=== PATIENT | male | born 1965 | race Two or more races ===

== ENCOUNTER 2017-01-16 21:54 | Inpatient (IN) | payer SELFPAY ==
[~2017-01-16] VITALS: Ht 167.6 cm; Wt 101.0 kg
[~2017-01-16 21:54] MED LIST: ASPI81TA2 PO; CARV3.122 PO; FURO40TA5 PO; LISI-607 PO; POTA10TA48 PO; POTA20TA83 PO; ROSU10TA PO
[2017-01-16] MEDS ORDERED: NITROGLYCERIN 0.4 MG/TAB BOTTLE ONE (22:20)
[2017-01-16] MEDS ORDERED: ASPIRIN 325 MG TABLET ONE (22:20)
[2017-01-16] MEDS ORDERED: ONDANSETRON HCL/PF 4 MG/2 ML VIAL ONE (22:24)
[2017-01-16] MEDS ORDERED: ASPIRIN 325 MG TABLET PO ONE (22:30)
[2017-01-16] MEDS ORDERED: ONDANSETRON HCL/PF 4 MG/2 ML VIAL IV ONE (22:30)
[2017-01-16] MEDS ORDERED: NITROGLYCERIN 0.4 MG/TAB BOTTLE SL ONE (22:30)
[2017-01-16 22:33] LABS: BASOPHILS % (AUTO) 0.1 % (0.0-2.0); DIFF TOTAL % 100 %; HEMATOCRIT 43 % (39-51); LYMPHOCYTES # (AUTO) 1.4 /CMM (0.8-4.8); LYMPHOCYTES % (AUTO) 12.6 % (20.0-44.0); MEAN CORPUSCULAR HEMOGLOBIN 26 PG (26.0-33.0); MEAN CORPUSCULAR HGB CONC 33 g/dl (31.0-36.0); MEAN CORPUSCULAR VOLUME 80 fL (80-96); MONOCYTES # (AUTO) 0.3 /CMM (0.1-1.30); MONOCYTES % (AUTO) 2.6 % (2.0-12.0); NEUTROPHILS # (AUTO) 9.3 /CMM (1.8-8.9); NEUTROPHILS % (AUTO) 84.7 % (43.0-81.0); PLATELET COUNT (AUTO) 187 /CMM (150-450); RED BLOOD CELL COUNT(AUTO) 5.36 MIL/uL (4.5-6.0)
[2017-01-16 22:47] LABS: INR 1.14 (0.87-1.13); PROTHROMBIN TIME 12.3 SECS (9.5-12.7)
[2017-01-16 22:49] LABS: CALCIUM, SERUM 8.1 mg/dL (8.5-10.1); CREATININE 1.6 mg/dL (0.6-1.3); POTASSIUM 3.4 mmol/L (3.5-5.1)
[2017-01-16 22:56] LABS: TROPONIN I 0.042 ng/mL (0.00-0.056)
[2017-01-16] MEDS ORDERED: NALOXONE PREFILLED SYRINGE 2 MG/2 ML SYRINGE ONE (23:01)
[2017-01-16] MEDS ORDERED: POTASSIUM CHLORIDE 20 MEQ TAB.PRT.SR PO ONE ×2 (23:24→23:30)
[2017-01-17] VITALS (11 sets, daily range): BP systolic 76–107; BP diastolic 44–72
[2017-01-17 07:19] LABS: CHOLESTEROL 135 mg/dL (<200); HDL CHOLESTEROL 18 mg/dL (40-60); LDL 83 mg/dL (0-99); TRIGLYCERIDES 174 mg/dL (30-150)
[2017-01-17 08:42] LABS: TROPONIN I 0.038 ng/mL (0.00-0.056)
[2017-01-17] MEDS ORDERED: ASPIRIN 81 MG TAB.CHEW PO SCH (09:00)
[2017-01-17] MEDS ORDERED: LISINOPRIL (10MG) 10 MG TABLET PO SCH (09:00)
[2017-01-17] MEDS ORDERED: FUROSEMIDE 40 MG/4 ML VIAL IV SCH (09:00)
[2017-01-17 09:46] LABS: THYROID STIMULATING HORMONE 1.411 uIU/mL (0.358-3.74)
[2017-01-17] MEDS: CARVEDILOL 6.25 MG TABLET PO SCH ×2 (09:48→20:19)
[2017-01-17] MEDS: FUROSEMIDE 40 MG/4 ML VIAL IV SCH ×3 (09:48→16:00)
[2017-01-17] MEDS: POTASSIUM CHLORIDE 20 MEQ TAB.PRT.SR PO SCH ×3 (09:48→11:15)
[2017-01-17] MEDS ORDERED: HYDROCODONE/APAP 5/325MG 1 EACH TABLET PO PRN (13:00)
[2017-01-17] MEDS ORDERED: ONDANSETRON HCL/PF 4 MG/2 ML VIAL IV PRN (13:00)
[2017-01-17] MEDS ORDERED: Medication Not On Formulary EA (Rosuvastatin Calcium (Crestor) 10 MG) PO SCH (22:00)
[2017-01-18 08:00] VITALS: BP 99/60
[2017-01-18] MEDS ORDERED: FUROSEMIDE 100 MG/10 ML VIAL IV SCH (08:30)
== END 2017-01-18 08:30 | disposition left against medical advice (07) | DRG 291 ==
LOC: ER 21:55 → TELE 23:39 → MED 01-17 09:29
PROVIDERS: ADMIT Internal Medicine; ATTEND Internal Medicine
DX: I13.0 Hypertensive heart and chronic kidney disease with heart failure and stage 1 through stage 4 chronic kidney disease, or unspecified chronic kidney disease (principal); N17.0 Acute kidney failure with tubular necrosis; I50.33 Acute on chronic diastolic (congestive) heart failure; F17.210 Nicotine dependence, cigarettes, uncomplicated; I42.8 Other cardiomyopathies; E87.6 Hypokalemia; I25.10 Atherosclerotic heart disease of native coronary artery without angina pectoris; N18.9 Chronic kidney disease, unspecified; R73.9 Hyperglycemia, unspecified; J40 Bronchitis, not specified as acute or chronic; R07.9 Chest pain, unspecified
CPT/HCPCS: 36415; 71010-TC; 80048-TC; 80061-TC; 82306; 82962-TC; 83880; 84439-TC; 84443-TC; 84484-TC; 85025-TC; 85730-TC; 87081-TC; A4606; J1940; J2310; J2405; Z7610

== ENCOUNTER 2022-04-15 23:53 | Inpatient (IN) | payer MEDICAID ==
[~2022-04-15] VITALS: Ht 170.2 cm; Wt 99.3 kg
[~2022-04-15 23:53] MED LIST changes: +ASPI-1169 PO; -ASPI81TA2 PO; -LISI-607 PO; +LISI-768 PO; -ROSU10TA PO; +ROSU10TA2 PO
--- NOTE | 2022-04-16 00:02 | NUR ---
BIBRA 84 C/O CP RADIATED TO L SHOULDER SINCE YESTERDAY. HEDIS COORDINATOR ADMIN NITRO 1 SPRAY, ASP 325MG. PAIN NOW 04/08 . PT A/OX3. TOLERATING R/A WELL WITH NO SOB. CONNECTED PT TO POX AND MONITOR. SAFETY MEASURES IN PLACE.
--- NOTE | 2022-04-16 00:04 | NUR ---
Note nissa in ED - 04/16/22 at 0019 by CHASIDY BIBRA 84 C/O CP RADIATED TO L SHOULDER SINCE YESTERDAY. WARPING MILL OPERATOR ADMIN NITRO 1 SPRAY, ASP 325MG. PATIENT ALERT AND ORIENTED X3. NORMALLY AMBULATORY BUT BROUGHT IN BY STRETCHER. PLACED ON BED 11 ON MONITOR AND POX.
--- NOTE | 2022-04-16 00:07 | NUR ---
EMT @ BEDSIDE FOR EKG
--- NOTE | 2022-04-16 00:07 | NUR ---
COVID SWAB DONE AND SENT TO LAB
--- NOTE | 2022-04-16 00:07 | NUR ---
RN @ BEDSIDE FOR BLOOD DRAW.
--- NOTE | 2022-04-16 00:07 | NUR ---
BLOOD COLLECTED AND SENT TO LAB
--- NOTE | 2022-04-16 00:22 | NUR ---
MOVE SHEET SUBMITTED.
--- NOTE | 2022-04-16 00:24 | NUR ---
MRSA SWAB COLLECTED AND SENT TO LAB. PATIENT'S BELONGINGS LIST DONE.
[2022-04-16 00:25] LABS: BASOPHILS # (AUTO) 0.1 K/uL (0.0-0.2); BASOPHILS % (AUTO) 1.1 % (0.0-2.0); EOSINOPHILS % (AUTO) 0.9 % (0.0-6.0); HEMATOCRIT 46 % (39-51); HEMOGLOBIN 15.2 g/dL (13.5-17.5); LYMPHOCYTES # (AUTO) 2.7 K/uL (0.8-4.8); LYMPHOCYTES % (AUTO) 24.6 % (20.0-44.0); MEAN CORPUSCULAR HGB CONC 33 g/dl (31.0-36.0); MEAN CORPUSCULAR VOLUME 82 fL (80-96); MONOCYTES # (AUTO) 0.8 K/uL (0.1-1.30); MONOCYTES % (AUTO) 7.7 % (2.0-12.0); NEUTROPHILS # (AUTO) 7.1 K/uL (1.8-8.9); NEUTROPHILS % (AUTO) 65.7 % (43.0-81.0); PLATELET COUNT (AUTO) 229 K/uL (150-450); RED BLOOD CELL COUNT(AUTO) 5.63 MIL/uL (4.5-6.0); WHITE BLOOD COUNT (AUTO) 10.9 K/uL (4.3-11.0)
--- NOTE | 2022-04-16 00:25 | NUR ---
TANK TRUCK MILK RECEIVER AT PT'S BEDSIDE
[2022-04-16] MEDS ORDERED: NITROGLYCERIN PACKET 1 GM PACKET ONE (00:40)
--- NOTE | 2022-04-16 00:45 | NUR ---
PT STATES HE IS NOT ALLERGIC TO MORPHINE, HE HAS NO KNOWN ALLERGIES. WILL UPDATE CHART. AWARE.
[2022-04-16] MEDS ORDERED: MORPHINE SULFATE INJ 4 MG/ML DISP.SYRIN ONE (00:55)
[2022-04-16] MEDS ORDERED: NITROGLYCERIN PACKET 1 GM PACKET TOP ONE (01:00)
[2022-04-16] MEDS ORDERED: MORPHINE SULFATE INJ 2 MG/ML DISP.SYRIN IV ONE (01:00)
--- NOTE | 2022-04-16 01:02 | NUR ---
NITRO BID PATCH DISCONTINUED, PER MD ORDERS.
[2022-04-16 01:05] LABS: CALCIUM, SERUM 8.5 mg/dL (8.5-10.1); CARBON DIOXIDE 24 mmol/L (21-32); CHLORIDE 105 mmol/L (98-107); CREATININE 1.3 mg/dL (0.6-1.3); GLUCOSE 97 mg/dL (74-106); POTASSIUM 4.1 mmol/L (3.5-5.1); SODIUM SERUM 139 mmol/L (136-145); UREA NITROGEN, BLOOD 19 mg/dL (7-18)
[2022-04-16 01:17] LABS: ALANINE AMINOTRANSFERASE 21 U/L (12-78); ALBUMIN 3.4 g/dL (3.4-5.0); ALKALINE PHOSPHATASE 76 U/L (46-116); ASPARTATE AMINOTRANSFERASE 10 U/L (15-37); BILIRUBIN,DIRECT 0.1 mg/dL (0.0-0.2); BILIRUBIN,TOTAL 0.6 mg/dL (0.2-1.0); TOTAL PROTEIN, SERUM 6.8 g/dL (6.4-8.2)
[2022-04-16] MEDS ORDERED: FUROSEMIDE 40 MG/4 ML VIAL IV ONE (02:00)
[2022-04-16] MEDS ORDERED: FUROSEMIDE 40 MG/4 ML VIAL ONE (02:03)
--- NOTE | 2022-04-16 02:19 | NUR ---
epic panel paged
--- NOTE | 2022-04-16 02:40 | NUR ---
ROOM 311-1 TELE
--- NOTE | 2022-04-16 02:47 | NUR ---
RN NOTES RECEIVED REPORT FROM TAWNYA RIGGINS; AWAITING PATIENT ARRIVAL ON UNIT
--- NOTE | 2022-04-16 02:57 | NUR ---
REPORT GIVEN TO NUNU BOWLING FOR ADRIAN
[2022-04-16 04:00] VITALS: BP 119/82
--- NOTE | 2022-04-16 04:00 | NUR ---
DONOR SERVICES COORDINATORCERTIFIED REAL ESTATE APPRAISER NOTES PATIENT ARRIVED ON UNIT VIA STRETCHER, PATIENT IS AMBULATORY WITH STEADY GAIT; A/OX4, PATIENT COMPLAINING OF SLIGHT SOB; PATIENT ABLE TO VERBALIZED NEEDS; BREATHING SLIGHTLY LABORED, VSS, SPO2 95% ON ROOM AIR; TELE MONITOR READING SINUS RHYTHM, PATIENT NOTED TO HAVE LCW PACEMAKER; PER DRINKING WATER TECHNICIAN, UNABLE TO READ PACING OF NOW; CHARGE NURSE MADE AWARE; WILL CONT TO MONITOR; PATIENT BELONGINGS CHECKED AT BEDSIDE WITH TRAVELING ACCOUNTANT; PATIENT HAD PACK OF PARLIAMENT CIGARETTES AND A DATA CONTROL CLERK SUPERVISOR, PLACED AT NURSING STATION, CHARGE NURSE ALSO AWARE; SKIN ASSESSMENT DONE; SKIN INTACT; PATIENT ORIENTED TO STAFF AND TO UNIT; WILL CONT TO MONITOR; AWAITING MD ORDERS;
--- NOTE | 2022-04-16 04:08 | NUR ---
STAFF ELECTRICAL ENGINEER NOTES PATIENT REFUSING TO CHANGE TO HOSPITAL GOWN; PATIENT COMPLAINING OF STOMACH CRAMPS/PAIN; MD MADE AWARE;
[2022-04-16] MEDS ORDERED: MORPHINE SULFATE INJ 2 MG/ML DISP.SYRIN IV PRN (04:30)
[2022-04-16] MEDS ORDERED: ENOXAPARIN SODIUM 40 MG/0.4 ML DISP.SYRIN SQ SCH (04:30)
[2022-04-16] MEDS ORDERED: MAGNESIUM HYDROXIDE 30 ML UDC PO PRN (04:30)
[2022-04-16] MEDS ORDERED: MAG HYDROX/AL HYDROX/SIMETH 30 ML UDC PO PRN (04:30)
[2022-04-16] MEDS ORDERED: ACETAMINOPHEN 325 MG TABLET PO PRN (04:30)
[2022-04-16] MEDS ORDERED: ONDANSETRON HCL/PF 4 MG/2 ML VIAL IVP PRN (04:30)
[2022-04-16] MEDS ORDERED: POTASSIUM CHLORIDE 20 MEQ TAB.PRT.SR PO SCH (04:30)
--- NOTE | 2022-04-16 04:46 | NUR ---
REEL STRIPPER NOTES PATIENT REFUSING LOVENOX/CHEMICAL PROPHYLAXIS AND DVT PUMPS; PATIENT EDUCATED ON IMPORTANCE OF COMPLIANCE THROUGHOUT HOSPITALIZATION; PATIENT WAS ASKED WHY HE IS REFUSING, PATIENT STATED, "YES I HAVE ONE, IT IS BECAUSE I DO NOT WANT IT". MADE AWARE; CHARGE NURSE AWARE OF PT BEHAVIOR Addendum: 04/16/22 at 0447 by SHANELL GRIMES RN AWAITING FOR [facility] PROCESS ARE[facility] SUPERVISOR PHARMACY TO VERIFY MEDICATION ORDERS; SPOKE WITH ANJEL
--- NOTE | 2022-04-16 06:51 | NUR ---
SENIOR JAVA DEVELOPER CLOSING NOTES PATIENT A/OX4, PATIENT ABLE TO VERBALIZE NEEDS; BREATHING SLIGHTLY LABORED, VSS, SPO2 95% ON ROOM AIR; PATIENT REFUSING NASAL CANNULA PRN , PATIENT STATED VITALS ARE STABLE; TELE MONITOR READING SINUS RHYTHM WITH BBBS 80S, PATIENT NOTED TO HAVE LCW PACEMAKER; PER MOBILE PHLEBOTOMIST, UNABLE TO READ PACING OF NOW; CHARGE NURSE MADE AWARE; WILL INFORM DAY SHIFT; ALL NEEDS RENDERED; SAFETY PRECAUTIONS IMPLEMENTED; BED LOCKED IN LOW POSITION; SIDE RAILX2; CALL LIGHT WITHIN REACH; WILL ENDORSE CONTINUITY OF CARE TO ONCOMING SHIFT
[2022-04-16] MEDS: PANTOPRAZOLE 40 MG TABLET.DR PO SCH (07:31)
[2022-04-16 08:00] VITALS: BP 119/80
[2022-04-16] MEDS: FUROSEMIDE 40 MG TABLET PO SCH (09:00)
[2022-04-16] MEDS: CARVEDILOL 3.125 MG TABLET PO SCH ×2 (09:00→16:46)
[2022-04-16] MEDS: ASPIRIN 81 MG TAB.CHEW PO SCH (09:00)
[2022-04-16] MEDS: NICOTINE PATCH (7MG) 7 MG PATCH.TD24 TD SCH (09:00)
--- NOTE | 2022-04-16 09:00 | NUR ---
received pt. in am,spoke to him of the advantages of lovenox,pt. agreeable to take shot he refused last night.
[2022-04-16] MEDS: ENOXAPARIN SODIUM 40 MG/0.4 ML DISP.SYRIN SQ SCH (09:50)
[2022-04-16 10:24] LABS: THYROID STIMULATING HORMONE 2.983 uIU/mL (0.358-3.74)
[2022-04-16 11:53] VITALS: BP 121/66
--- NOTE | 2022-04-16 12:30 | NUR ---
dvt pumps applied.
--- NOTE | 2022-04-16 15:37 | NUR ---
now pumps removed so as pt. to amb. to bathrm.then refusing pumps.
[2022-04-16 16:00] VITALS: BP 114/73
[2022-04-16] MEDS: LISINOPRIL (5MG) 5 MG TABLET PO SCH (16:43)
--- NOTE | 2022-04-16 17:35 | NUR ---
NO CHANGE IN STATUS.
--- NOTE | 2022-04-16 19:30 | NUR ---
POOL INSTALLER OPENING NOTE RECEIVED PT IN BED, EYES CLOSED, EASILY AROUSABLE. A/O X4 AND ABLE TO MAKE NEEDS KNOWN. PT STABLE ON ROOM AIR. NO SOB OR S/S OF RESPIRATORY DISTRESS. BREATHING EVEN AND UNLABORED. ON EXTERNAL ADVERTISING DISPATCH CLERKS SUPERVISOR READING SR 86 BPM. IV ACCESS RAC 18 GAUGE SL, INTACT AND PATENT. SAFETY PRECAUTIONS IN PLACE. BED IN LOWEST LOCKED POSITION, HOB ELEVATED, SIDE RAILS UP X2, AND CALL LIGHT AND TABLE WITHIN REACH. ALL NEEDS MET AT THIS TIME.
[2022-04-16 20:00] VITALS: BP 113/77
[2022-04-16] MEDS ORDERED: ATORVASTATIN 40 MG TABLET PO SCH (22:00)
[2022-04-16] MEDS ORDERED: ATORVASTATIN 10 MG TABLET PO SCH (22:00)
--- NOTE | 2022-04-16 23:42 | NUR ---
RN NOTE PT COMPLAINED OF ABDOMINAL PAIN 02/06. ADMINISTERED TYLENOL 650 MG FOR MILD PAIN ORDERED. MADE COMFORTABLE IN BED. ALL NEEDS MET AT THIS TIME.
[2022-04-17] VITALS: BP 178/74
[2022-04-17 04:00] VITALS: BP 96/65
[2022-04-17 06:19] LABS: CALCIUM, SERUM 8.9 mg/dL (8.5-10.1); CREATININE 1.1 mg/dL (0.6-1.3); MAGNESIUM 2.1 mg/dL (1.8-2.4); POTASSIUM 4.2 mmol/L (3.5-5.1)
[2022-04-17 06:48] LABS: BASOPHILS % (AUTO) 0.6 % (0.0-2.0); EOSINOPHILS % (AUTO) 1.1 % (0.0-6.0); HEMATOCRIT 45 % (39-51); LYMPHOCYTES # (AUTO) 2.3 K/uL (0.8-4.8); LYMPHOCYTES % (AUTO) 28.1 % (20.0-44.0); MEAN CORPUSCULAR HGB CONC 33 g/dl (31.0-36.0); MEAN CORPUSCULAR VOLUME 82 fL (80-96); MONOCYTES # (AUTO) 0.6 K/uL (0.1-1.30); MONOCYTES % (AUTO) 7.3 % (2.0-12.0); NEUTROPHILS # (AUTO) 5.2 K/uL (1.8-8.9); NEUTROPHILS % (AUTO) 62.9 % (43.0-81.0); PLATELET COUNT (AUTO) 185 K/uL (150-450); RED BLOOD CELL COUNT(AUTO) 5.51 MIL/uL (4.5-6.0); WHITE BLOOD COUNT (AUTO) 8.2 K/uL (4.3-11.0)
--- NOTE | 2022-04-17 06:49 | NUR ---
TRIM AND BURR OPERATOR CLOSING NOTE PT IN BED, EYES CLOSED, EASILY AROUSABLE. A/O X4 AND ABLE TO MAKE NEEDS KNOWN. PT STABLE ON ROOM AIR. NO SOB OR S/S OF RESPIRATORY DISTRESS. BREATHING EVEN AND UNLABORED. ON EXTERNAL CVICU RN READING SR 86 BPM. IV ACCESS RAC 18 GAUGE SL, INTACT AND PATENT. ALL DUE MEDS GIVEN ORDERED. SAFETY PRECAUTIONS IN PLACE AT ALL TIMES. BED IN LOWEST LOCKED POSITION, HOB ELEVATED, SIDE RAILS UP X2, AND CALL LIGHT AND TABLE WITHIN REACH. ALL NEEDS MET AT THIS TIME AND WILL ENDORSE TO ONCOMING NURSE FOR ADRIAN.
--- NOTE | 2022-04-17 07:18 | NUR ---
JOB COUNSELOR OPENING NOTE RECEIVED PATIENT ON BED ASLEEP. RESPONDS TO CALL OR LIGHT TOUCH. PATIENT IS A/O X4 AND ABLE TO MAKE NEEDS KNOWN. PT ON ROOM AIR. NO SOB OR S/S OF RESPIRATORY DISTRESS NOTED. ON EXTERNAL MANAGER OF CONSTRUCTION READING SR 80'S BPM. IV ACCESS RAC 18 GAUGE SL, INTACT AND PATENT. SAFETY PRECAUTIONS IN PLACE AT ALL TIMES. BED IN LOWEST LOCKED POSITION, HOB ELEVATED, SIDE RAILS UP X2, AND CALL LIGHT AND TABLE WITHIN REACH.
[2022-04-17 08:00] VITALS: BP 110/79
[2022-04-17] MEDS: PANTOPRAZOLE 40 MG TABLET.DR PO SCH (08:03)
[2022-04-17] MEDS: NICOTINE PATCH (7MG) 7 MG PATCH.TD24 TD SCH (08:32)
[2022-04-17] MEDS: LISINOPRIL (5MG) 5 MG TABLET PO SCH (08:33)
[2022-04-17] MEDS: FUROSEMIDE 40 MG TABLET PO SCH (08:33)
[2022-04-17] MEDS: ASPIRIN 81 MG TAB.CHEW PO SCH (08:33)
[2022-04-17] MEDS: CARVEDILOL 3.125 MG TABLET PO SCH ×2 (08:34→18:01)
[2022-04-17] MEDS: ENOXAPARIN SODIUM 40 MG/0.4 ML DISP.SYRIN SQ SCH (08:38)
--- NOTE | 2022-04-17 14:35 | NUR ---
STONE ROUGHER NOTE SEEN BY DR. MAO WITH PLAN TO DISCHARGE PATIENT. AWAITING ORDER. HEALTH TEACHING DONE REGARDING DISCHARGE PROTOCOL AND DISCHARGE MEDICATIONS AND INSTRUCTIONS. VERBALIZED UNDERSTANDIGN AND APPRECIATION. COMFORT MEASURES PROVIDED. NO COMPLAINT OF PAIN OR DISCOMFORT. IN STABLE CONDITION.
[2022-04-17 16:00] VITALS: BP 110/60
[2022-04-17] MEDS ORDERED: EMPA25TA PO (16:59)
[2022-04-17] MEDS ORDERED: SPIR25TA PO (16:59)
[2022-04-17] MEDS ORDERED: DEXT15DR6 EACHEYE (16:59)
--- NOTE | 2022-04-17 17:30 | NUR ---
TURNING LATHE TENDER NOTE PATIENT DISCHARGED ORDERED. IV REMOVED AND COVERED WITH DRY DRESSING, TOLERATED WELL. PATIENT IS SELF RESPONSIBLE AND AMBULATORY/ INDEPENDENT. PATIENT PICKED UP BY FRIEND AT LOBBY, ACCOMPANIED BY NURSE TO LOBBY. IN STABLE CONDITION. ENDORSED ACCORDINGLY.
[2022-04-17 18:01] VITALS: BP 110/60
== END 2022-04-17 18:30 | disposition home or self-care (01) | DRG 198 ==
LOC: ER 23:56 → TELE 04-16 02:41
PROVIDERS: ADMIT Nurse Practitioner Acute Care; ATTEND Nurse Practitioner Acute Care
DX: I25.10 Atherosclerotic heart disease of native coronary artery without angina pectoris (principal); I50.43 Acute on chronic combined systolic (congestive) and diastolic (congestive) heart failure; I42.9 Cardiomyopathy, unspecified; K76.0 Fatty (change of) liver, not elsewhere classified; R16.2 Hepatomegaly with splenomegaly, not elsewhere classified; I11.0 Hypertensive heart disease with heart failure; Z20.822 Contact with and (suspected) exposure to COVID-19; Z79.82 Long term (current) use of aspirin; Z79.899 Other long term (current) drug therapy; E78.5 Hyperlipidemia, unspecified; F17.200 Nicotine dependence, unspecified, uncomplicated; E11.9 Type 2 diabetes mellitus without complications; I25.2 Old myocardial infarction; Z95.810 Presence of automatic (implantable) cardiac defibrillator; N28.1 Cyst of kidney, acquired; Z95.5 Presence of coronary angioplasty implant and graft; Z91.19 Patient's noncompliance with other medical treatment and regimen; Z83.3 Family history of diabetes mellitus; Z82.49 Family history of ischemic heart disease and other diseases of the circulatory system
CPT/HCPCS: 36415; 71045-TC; 76700-TC; 80048-TC; 80061-TC; 80076-TC; 83735-TC; 83880; 84100-TC; 84439-TC; 84443-TC; 84484-TC; 85025-TC; 85730-TC; 87081-TC; 93307-TC; C9803; G0378; J1650; J1940; J2270

== ENCOUNTER 2022-04-30 00:12 | Inpatient (IN) | payer MEDICAID ==
[~2022-04-30] VITALS: Ht 177.8 cm; Wt 99.8 kg
[~2022-04-30 00:12] MED LIST changes: +DEXT15DR6 EACHEYE; +EMPA25TA PO; -POTA10TA48 PO; +SPIR25TA PO
--- NOTE | 2022-04-30 00:25 | NUR ---
BIBS. MID STERNAL CP RADIATING TO L UPPER CHEST X 3 DAYS SQUEEIZING W/ SOB. PATIENT ALERT AND ORIENTED X3. AMBULATORY WITH NON LABORED BREATHING IN BED 06 AWAITING MD FINN.
--- NOTE | 2022-04-30 00:30 | NUR ---
RN AT BEDSIDE FOR BLOOD DRAW
--- NOTE | 2022-04-30 00:30 | NUR ---
BLOOD COLLECTED AND SENT TO LAB
--- NOTE | 2022-04-30 00:31 | NUR ---
MOSES DONE AND SENT TO LAB
--- NOTE | 2022-04-30 00:32 | NUR ---
EMT AT BEDSIDE FOR EKG
[2022-04-30 00:47] LABS: BASOPHILS # (AUTO) 0.1 K/uL (0.0-0.2); BASOPHILS % (AUTO) 1.1 % (0.0-2.0); EOSINOPHILS % (AUTO) 0.9 % (0.0-6.0); HEMATOCRIT 45 % (39-51); HEMOGLOBIN 14.9 g/dL (13.5-17.5); LYMPHOCYTES # (AUTO) 1.5 K/uL (0.8-4.8); LYMPHOCYTES % (AUTO) 19.4 % (20.0-44.0); MEAN CORPUSCULAR HGB CONC 33 g/dl (31.0-36.0); MEAN CORPUSCULAR VOLUME 81 fL (80-96); MONOCYTES # (AUTO) 0.6 K/uL (0.1-1.30); MONOCYTES % (AUTO) 7.1 % (2.0-12.0); NEUTROPHILS # (AUTO) 5.6 K/uL (1.8-8.9); NEUTROPHILS % (AUTO) 71.5 % (43.0-81.0); PLATELET COUNT (AUTO) 233 K/uL (150-450); RED BLOOD CELL COUNT(AUTO) 5.52 MIL/uL (4.5-6.0); WHITE BLOOD COUNT (AUTO) 7.8 K/uL (4.3-11.0)
[2022-04-30 00:59] LABS: CALCIUM, SERUM 8.6 mg/dL (8.5-10.1); CARBON DIOXIDE 29 mmol/L (21-32); CHLORIDE 104 mmol/L (98-107); CREATININE 1.2 mg/dL (0.6-1.3); GLUCOSE 110 mg/dL (74-106); POTASSIUM 3.7 mmol/L (3.5-5.1); SODIUM SERUM 139 mmol/L (136-145); UREA NITROGEN, BLOOD 19 mg/dL (7-18)
[2022-04-30] MEDS ORDERED: MORPHINE SULFATE INJ 2 MG/ML DISP.SYRIN IV ONE (01:00)
[2022-04-30] MEDS ORDERED: MORPHINE SULFATE INJ 4 MG/ML DISP.SYRIN ONE (01:04)
--- NOTE | 2022-04-30 01:10 | NUR ---
XRAY AT BEDSIDE
[2022-04-30 01:12] LABS: ALANINE AMINOTRANSFERASE 22 U/L (12-78); ALKALINE PHOSPHATASE 71 U/L (46-116); ASPARTATE AMINOTRANSFERASE 17 U/L (15-37); BILIRUBIN,DIRECT 0.2 mg/dL (0.0-0.2); BILIRUBIN,TOTAL 0.6 mg/dL (0.2-1.0); TOTAL PROTEIN, SERUM 6.7 g/dL (6.4-8.2)
--- NOTE | 2022-04-30 01:22 | NUR ---
MRSA SWAB COLLECTED AND SENT TO LAB. PATIENT'S BELONGINGS LIST DONE.
[2022-04-30] MEDS ORDERED: INSULIN REGULAR, HUMAN 100 UNIT/ML 3 ML VIAL SQ PRN (03:00)
[2022-04-30] MEDS ORDERED: ACETAMINOPHEN 325 MG TABLET PO PRN (03:00)
[2022-04-30] MEDS ORDERED: ONDANSETRON HCL/PF 4 MG/2 ML VIAL IVP PRN (03:00)
[2022-04-30] MEDS ORDERED: POTASSIUM CHLORIDE 20 MEQ TAB.PRT.SR PO SCH (03:00)
[2022-04-30] MEDS ORDERED: hydrALAZINE HCL IV 20 MG VIAL IV PRN (03:00)
[2022-04-30] MEDS ORDERED: DEXTROSE 50%-WATER 50 ML DISP.SYRIN IV PRN (03:00)
--- NOTE | 2022-04-30 03:11 | NUR ---
RECIEVED BED 323-1
[2022-04-30] MEDS ORDERED: MORPHINE SULFATE INJ 2 MG/ML DISP.SYRIN ONE (05:27)
[2022-04-30] MEDS: MORPHINE SULFATE INJ 2 MG/ML DISP.SYRIN IV PRN ×2 (05:30→09:13)
--- NOTE | 2022-04-30 05:45 | NUR ---
REPORT GIVEN TO WALTER
--- NOTE | 2022-04-30 06:13 | NUR ---
PT TRANSPORTED TO ROOM 304-1 ON GAS SPECIALIST PER ACLS PROTOCOL WITHOUT INCIDENT VIA RNEY
--- NOTE | 2022-04-30 07:30 | NUR ---
CHILDREN'S ATTENDANT NOTES PT IN BED, AWAKE, ALERT AND ORIENTED, WITH COMPLAINT OF SOME PAIN AND CRAMPING AT THE CHEST AND ABDOMEN AREA, NOT IN DISTRESS, TOLERATES ROOM AIR WELL, PT SEEN BY DR. GONZALEZ, CALL LIGHT WITHIN REACH, NEEDS ATTENDED.
[2022-04-30 08:00] VITALS: BP 103/64
[2022-04-30] MEDS ORDERED: LISINOPRIL (5MG) 5 MG TABLET PO SCH (09:00)
[2022-04-30] MEDS ORDERED: ASPIRIN 81 MG TAB.CHEW PO SCH (09:00)
[2022-04-30] MEDS ORDERED: HEPARIN SODIUM, PORCINE 5000 UNITS/1 ML VIAL SQ SCH (09:00)
[2022-04-30] MEDS: CARVEDILOL 3.125 MG TABLET PO SCH ×2 (09:00→16:30)
[2022-04-30] MEDS ORDERED: SPIRONOLACTONE 25 MG TABLET PO SCH (09:00)
--- NOTE | 2022-04-30 09:00 | NUR ---
HYDROPRESS OPERATOR NOTES PT SEEN AND EXAMINED BY DR. RHODES, PLAN OF CARE DISCUSSED WITH PT AT BEDSIDE, VERBALIZED UNDERSTANDING.
[2022-04-30] MEDS: FUROSEMIDE 40 MG/4 ML VIAL IV SCH ×2 (09:12→16:39)
[2022-04-30] MEDS: BLOOD SUGAR DIAGNOSTIC 1 EACH STRIP IN SCH ×3 (09:13→17:04)
[2022-04-30] MEDS ORDERED: LOSA25TA27 PO (09:15)
[2022-04-30] MEDS ORDERED: METF-440 PO (09:15)
[2022-04-30] MEDS ORDERED: ATOR40TA PO (09:15)
[2022-04-30] MEDS ORDERED: CLOP75TA15 PO (09:15)
[2022-04-30] MEDS ORDERED: EMPA25TA PO (09:15)
[2022-04-30] MEDS ORDERED: DAPA10TA PO (09:15)
[2022-04-30] MEDS ORDERED: IOHEXOL-350 100 ML VIAL IV ONE (10:24)
[2022-04-30] MEDS ORDERED: NITROGLYCERIN 0.4 MG/TAB BOTTLE ONE (10:24)
[2022-04-30] MEDS ORDERED: IV NS 0.9% 250 ML IV ONE (10:25)
[2022-04-30] MEDS ORDERED: CT SWABBABLE VALVE TRANS SET 1 EA INFUS.SET MC ONE (10:25)
[2022-04-30] MEDS ORDERED: METOPROLOL TARTRATE INJ 5 MG/5 ML AMPUL ONE ×3 (10:25→11:02)
--- NOTE | 2022-04-30 10:35 | NUR ---
RN NOTES CTA STARTED IN RADIOLOGY, PT IS A/Ox4, ON TELE SR HR IN 80'S . IV SITE CLEAN, DRY AND INTACT , CONTINUE TO MONITOR VSS .
--- NOTE | 2022-04-30 11:10 | NUR ---
RN NOTES CTA DONE, PT TOLERATED THE PROCEDURE WELL, TOTAL OF 30 MG IV METOPROL IV GIVEN . VSS STABLE,
--- NOTE | 2022-04-30 11:41 | NUR ---
VENETIAN BLIND MACHINE OPERATOR NOTES PT BACK FROM CT ANGIO OF THE HEART, COMPLAINING OF CHEST AND ABDOMINAL PAIN, DR. CARMELO HEADLEY MD INCREASED HIS DOSE OF MORPHINE TO 4MG IV Q4 HRS PRN, NOTED AND CARRIED OUT.
[2022-04-30] MEDS ORDERED: MORPHINE SULFATE INJ 4 MG/ML DISP.SYRIN IV PRN (12:00)
[2022-04-30] MEDS ORDERED: HYDR-3972 PO (13:56)
[2022-04-30] MEDS ORDERED: PANT40TA2 PO (13:57)
[2022-04-30 16:00] VITALS: BP 111/69
[2022-04-30 16:30] VITALS: BP 111/69
--- NOTE | 2022-04-30 17:15 | NUR ---
HR BUSINESS PARTNER CONSULTANT NOTES PT IN BED, ASLEEP, EASY TO AROUSE, ALERT AND ORIENTED, NOT IN DISTRESS, TELE MONITORING ON SR, PT CLEARED BY DR. GONZALEZ, CTCA NEGATIVE, DISCHARGE ORDER GIVEN BY DR. RHODES, DISCHARGE AND MEDICATION INSTRUCTIONS PROVIDED TO PT, INCLUNG HOLDING OFF METFORMIN FOR 3 DAYS, VERBALIZED UNDERSTANDING, BELONGINGS ACCOUNTED FOR, IV LINE REMOVED, PT AMBULATORY WITH STEADY GAIT, ACCOMPANIED PT TO HOSPITAL LOBBY, PT WILL BE PICKED UP BY HIS SON, PT IN STABLE CONDITION.
[2022-04-30] MEDS ORDERED: ATORVASTATIN 40 MG TABLET PO SCH (22:00)
== END 2022-04-30 17:10 | disposition home or self-care (01) | DRG 198 ==
LOC: ER 00:13 → TELE 03:11
PROVIDERS: ADMIT Nurse Practitioner Acute Care; ATTEND Nurse Practitioner Acute Care
DX: I25.10 Atherosclerotic heart disease of native coronary artery without angina pectoris (principal); I50.43 Acute on chronic combined systolic (congestive) and diastolic (congestive) heart failure; I42.9 Cardiomyopathy, unspecified; E88.81 Metabolic syndrome and other insulin resistance; I25.2 Old myocardial infarction; J44.9 Chronic obstructive pulmonary disease, unspecified; Z20.822 Contact with and (suspected) exposure to COVID-19; I11.0 Hypertensive heart disease with heart failure; Z95.0 Presence of cardiac pacemaker; Z79.899 Other long term (current) drug therapy; Z79.84 Long term (current) use of oral hypoglycemic drugs; Z79.02 Long term (current) use of antithrombotics/antiplatelets; Z79.82 Long term (current) use of aspirin; E78.5 Hyperlipidemia, unspecified; E11.9 Type 2 diabetes mellitus without complications; E66.9 Obesity, unspecified; Z68.31 Body mass index [BMI] 31.0-31.9, adult; F17.210 Nicotine dependence, cigarettes, uncomplicated; Z91.19 Patient's noncompliance with other medical treatment and regimen; K21.9 Gastro-esophageal reflux disease without esophagitis
CPT/HCPCS: 36415; 71045-TC; 75574; 80048-TC; 80076-TC; 82962-TC; 83880; 84484-TC; 85025-TC; 87081-TC; C9803; G0378; J1644; J1815; J1940; J2270; J3490; J7050; Q9967

== ENCOUNTER 2024-04-19 01:14 | Inpatient (IN) | payer MEDICAID ==
[~2024-04-19] VITALS: Ht 177.8 cm; Wt 97.7 kg
[~2024-04-19 01:14] MED LIST changes: +ATOR40TA PO; +CLOP75TA15 PO; +DAPA10TA PO; -DEXT15DR6 EACHEYE; +HYDR-3972 PO; +LOSA25TA27 PO; +PANT40TA2 PO; -ROSU10TA2 PO
[2024-04-19] MEDS ORDERED: MAG HYDROX/AL HYDROX/SIMETH 30 ML UDC ONE (01:29)
[2024-04-19] MEDS: MAG HYDROX/AL HYDROX/SIMETH 30 ML UDC PO ONE (01:29)
[2024-04-19] MEDS ORDERED: ASPIRIN EC 325 MG TABLET.DR PO ONE (01:34)
[2024-04-19] MEDS ORDERED: NITROGLYCERIN 0.4 MG/TAB BOTTLE ONE (01:43)
[2024-04-19] MEDS: NITROGLYCERIN 0.4 MG/TAB BOTTLE SL ONE (01:44)
[2024-04-19] MEDS: ASPIRIN 325 MG TABLET PO ONE (01:46)
[2024-04-19 01:56] LABS: BASOPHILS # (AUTO) 0.1 K/uL (0.0-0.2); BASOPHILS % (AUTO) 0.8 % (0.0-2.0); EOSINOPHILS # (AUTO) 0.1 K/uL (0.0-0.7); EOSINOPHILS % (AUTO) 1.2 % (0.0-6.0); HEMATOCRIT 49 % (39-51); HEMOGLOBIN 16.6 g/dL (13.5-17.5); LYMPHOCYTES # (AUTO) 2.4 K/uL (0.8-4.8); LYMPHOCYTES % (AUTO) 23.7 % (20.0-44.0); MEAN CORPUSCULAR HEMOGLOBIN 28 PG (26.0-33.0); MEAN CORPUSCULAR HGB CONC 34 g/dl (31.0-36.0); MEAN CORPUSCULAR VOLUME 85 fL (80-96); MONOCYTES # (AUTO) 0.6 K/uL (0.1-1.30); MONOCYTES % (AUTO) 6.3 % (2.0-12.0); NEUTROPHILS # (AUTO) 6.9 K/uL (1.8-8.9); PLATELET COUNT (AUTO) 175 K/uL (150-450); RED BLOOD CELL COUNT(AUTO) 5.83 MIL/uL (4.5-6.0); RED CELL DISTRIBUTION WIDTH 17.6 % (11.5-15.0); WHITE BLOOD COUNT (AUTO) 10.2 K/uL (4.3-11.0)
[2024-04-19 02:10] LABS: INR 1.04 (0.91-1.10); PARTIAL THROMBOPLASTIN TIME 29.7 SEC (24.3-34.3)
[2024-04-19 02:31] LABS: CALCIUM, SERUM 9.2 mg/dL (8.5-10.1); CARBON DIOXIDE 21 mmol/L (21-32); CHLORIDE 105 mmol/L (98-107); GLUCOSE 97 mg/dL (74-106); POTASSIUM 3.9 mmol/L (3.5-5.1); SODIUM SERUM 137 mmol/L (136-145); UREA NITROGEN, BLOOD 23 mg/dL (7-18)
[2024-04-19 02:36] LABS: ALANINE AMINOTRANSFERASE 18 U/L (12-78); ALKALINE PHOSPHATASE 84 U/L (46-116); ASPARTATE AMINOTRANSFERASE 9 U/L (15-37); BILIRUBIN,DIRECT 0.1 mg/dL (0.0-0.2); BILIRUBIN,TOTAL 0.3 mg/dL (0.2-1.0); TOTAL PROTEIN, SERUM 6.8 g/dL (6.4-8.2)
[2024-04-19] MEDS ORDERED: MORPHINE SULFATE INJ 2 MG/ML DISP.SYRIN ONE (03:11)
[2024-04-19] MEDS: MORPHINE SULFATE INJ 2 MG/ML DISP.SYRIN IV ONE (03:16)
[2024-04-19] MEDS: ACETAMINOPHEN 325 MG TABLET PO PRN ×2 (06:00→17:04)
[2024-04-19] MEDS ORDERED: ZOLPIDEM TARTRATE 5 MG TABLET PO PRN (06:30)
[2024-04-19] MEDS ORDERED: Z GUARD REMEDY 4 OZ OINT TP PRN (06:30)
[2024-04-19] MEDS ORDERED: ONDANSETRON HCL/PF 4 MG/2 ML VIAL IVP PRN (06:30)
[2024-04-19] MEDS ORDERED: MAGNESIUM HYDROXIDE 30 ML UDC PO PRN (06:30)
[2024-04-19] MEDS ORDERED: MAG HYDROX/AL HYDROX/SIMETH 30 ML UDC PO PRN (06:30)
[2024-04-19] MEDS: ENOXAPARIN SODIUM 40 MG/0.4 ML DISP.SYRIN SQ SCH ×2 (06:32→08:55)
[2024-04-19 08:00] VITALS: BP 127/90; TEMP 97.7; O2SAT 96
[2024-04-19 08:26] LABS: BASOPHILS # (AUTO) 0.1 K/uL (0.0-0.2); BASOPHILS % (AUTO) 0.6 % (0.0-2.0); EOSINOPHILS # (AUTO) 0.1 K/uL (0.0-0.7); EOSINOPHILS % (AUTO) 1.1 % (0.0-6.0); HEMATOCRIT 49 % (39-51); HEMOGLOBIN 16.2 g/dL (13.5-17.5); LYMPHOCYTES # (AUTO) 2.4 K/uL (0.8-4.8); LYMPHOCYTES % (AUTO) 26.8 % (20.0-44.0); MEAN CORPUSCULAR HEMOGLOBIN 28 PG (26.0-33.0); MEAN CORPUSCULAR HGB CONC 33 g/dl (31.0-36.0); MEAN CORPUSCULAR VOLUME 84 fL (80-96); MONOCYTES # (AUTO) 0.6 K/uL (0.1-1.30); MONOCYTES % (AUTO) 6.9 % (2.0-12.0); NEUTROPHILS # (AUTO) 5.8 K/uL (1.8-8.9); NEUTROPHILS % (AUTO) 64.6 % (43.0-81.0); PLATELET COUNT (AUTO) 164 K/uL (150-450); RED BLOOD CELL COUNT(AUTO) 5.83 MIL/uL (4.5-6.0); RED CELL DISTRIBUTION WIDTH 17.4 % (11.5-15.0)
[2024-04-19 08:38] LABS: CALCIUM, SERUM 8.8 mg/dL (8.5-10.1); MAGNESIUM 1.7 mg/dL (1.8-2.4); PHOSPHORUS 3.2 mg/dL (2.5-4.9); POTASSIUM 3.8 mmol/L (3.5-5.1)
[2024-04-19] MEDS: PANTOPRAZOLE 40 MG TABLET.DR PO SCH (08:52)
[2024-04-19 10:35] LABS: THYROID STIMULATING HORMONE 1.847 uIU/mL (0.358-3.74)
[2024-04-19 12:00] VITALS: BP 115/74; TEMP 97.5; O2SAT 96
[2024-04-19] MEDS: MAGNESIUM OXIDE 400 MG TABLET PO ONE (12:17)
[2024-04-19] MEDS: NITROGLYCERIN 0.4 MG/TAB BOTTLE SL PRN (15:49)
[2024-04-19 16:00] VITALS: BP 127/83; TEMP 97.7; O2SAT 98
[2024-04-19] MEDS: BUMETANIDE INJ 0.25 MG/ML VIAL IV ONE (18:26)
[2024-04-19 20:00] VITALS: BP 131/86; TEMP 97.4; O2SAT 98
[2024-04-19 21:14] VITALS: BP 131/86; TEMP 97.4; O2SAT 98
[2024-04-20] VITALS: BP_SYST 125; BP_SYST 131; BP_DIAS 78; BP_DIAS 83; TEMP 97.5; TEMP 98.1; O2SAT 100; O2SAT 94
[2024-04-20 04:48] VITALS: BP 131/86; TEMP 97.4; O2SAT 98
[2024-04-20 06:48] LABS: BASOPHILS # (AUTO) 0.1 K/uL (0.0-0.2); BASOPHILS % (AUTO) 0.8 % (0.0-2.0); EOSINOPHILS # (AUTO) 0.1 K/uL (0.0-0.7); EOSINOPHILS % (AUTO) 1.6 % (0.0-6.0); HEMATOCRIT 48 % (39-51); HEMOGLOBIN 16.1 g/dL (13.5-17.5); LYMPHOCYTES # (AUTO) 1.9 K/uL (0.8-4.8); LYMPHOCYTES % (AUTO) 27.8 % (20.0-44.0); MEAN CORPUSCULAR HEMOGLOBIN 28 PG (26.0-33.0); MEAN CORPUSCULAR HGB CONC 33 g/dl (31.0-36.0); MEAN CORPUSCULAR VOLUME 84 fL (80-96); MONOCYTES # (AUTO) 0.6 K/uL (0.1-1.30); MONOCYTES % (AUTO) 7.9 % (2.0-12.0); NEUTROPHILS # (AUTO) 4.3 K/uL (1.8-8.9); NEUTROPHILS % (AUTO) 61.9 % (43.0-81.0); PLATELET COUNT (AUTO) 157 K/uL (150-450); RED BLOOD CELL COUNT(AUTO) 5.72 MIL/uL (4.5-6.0); RED CELL DISTRIBUTION WIDTH 17.6 % (11.5-15.0)
[2024-04-20 07:13] LABS: CALCIUM, SERUM 9.2 mg/dL (8.5-10.1); CREATININE 0.8 mg/dL (0.6-1.3); PHOSPHORUS 4.3 mg/dL (2.5-4.9); POTASSIUM 3.5 mmol/L (3.5-5.1)
[2024-04-20 07:30] VITALS: BP 118/81; TEMP 98.4; O2SAT 96
[2024-04-20] MEDS ORDERED: SACU1TAB PO (10:31)
[2024-04-20] MEDS ORDERED: BUME2TAB7 PO (10:31)
[2024-04-20] MEDS ORDERED: SPIR25TA PO (10:31)
[2024-04-20] MEDS ORDERED: ACET-73 PO (10:31)
[2024-04-20] MEDS ORDERED: EMPA10TA PO (10:31)
[2024-04-20] MEDS ORDERED: CARV6.252 PO (10:31)
[2024-04-20] MEDS ORDERED: METF-440 PO (10:31)
[2024-04-20 16:44] VITALS: BP 120/82; TEMP 97.7; O2SAT 96
[2024-04-20] MEDS ORDERED: DEXTROSE 50%-WATER 50 ML DISP.SYRIN IV PRN (18:00)
[2024-04-20 21:45] VITALS: BP 119/78; TEMP 97.9; O2SAT 97
[2024-04-20] MEDS: INSULIN REGULAR, HUMAN 100 UNIT/ML 3 ML VIAL SQ PRN (23:17)
[2024-04-20] MEDS: BLOOD SUGAR DIAGNOSTIC 1 EACH STRIP IN SCH (23:17)
[2024-04-21 00:18] VITALS: BP 119/77; TEMP 97.9; O2SAT 96
[2024-04-21 03:54] VITALS: BP 118/79; TEMP 97.7; O2SAT 96
[2024-04-21 07:21] LABS: CALCIUM, SERUM 9.3 mg/dL (8.5-10.1); CREATININE 0.8 mg/dL (0.6-1.3); MAGNESIUM 2.1 mg/dL (1.8-2.4); PHOSPHORUS 3.6 mg/dL (2.5-4.9); POTASSIUM 4.6 mmol/L (3.5-5.1)
[2024-04-21 07:25] LABS: BASOPHILS % (AUTO) 0.5 % (0.0-2.0); EOSINOPHILS # (AUTO) 0.1 K/uL (0.0-0.7); EOSINOPHILS % (AUTO) 1.2 % (0.0-6.0); HEMATOCRIT 48 % (39-51); HEMOGLOBIN 15.9 g/dL (13.5-17.5); LYMPHOCYTES # (AUTO) 2.1 K/uL (0.8-4.8); LYMPHOCYTES % (AUTO) 28.4 % (20.0-44.0); MEAN CORPUSCULAR HEMOGLOBIN 28 PG (26.0-33.0); MEAN CORPUSCULAR HGB CONC 33 g/dl (31.0-36.0); MEAN CORPUSCULAR VOLUME 84 fL (80-96); MONOCYTES # (AUTO) 0.5 K/uL (0.1-1.30); MONOCYTES % (AUTO) 6.8 % (2.0-12.0); NEUTROPHILS # (AUTO) 4.7 K/uL (1.8-8.9); NEUTROPHILS % (AUTO) 63.1 % (43.0-81.0); PLATELET COUNT (AUTO) 156 K/uL (150-450); RED BLOOD CELL COUNT(AUTO) 5.73 MIL/uL (4.5-6.0); RED CELL DISTRIBUTION WIDTH 17.4 % (11.5-15.0); WHITE BLOOD COUNT (AUTO) 7.4 K/uL (4.3-11.0)
[2024-04-21] MEDS: METFORMIN 500 MG TABLET PO SCH (08:31)
[2024-04-21] MEDS ORDERED: NITR0.4T48 SL (08:52)
== END 2024-04-21 16:58 | disposition home or self-care (01) | DRG 198 ==
LOC: ER 01:15 → TELE 04:27
PROVIDERS: ADMIT Nurse Practitioner Acute Care; ATTEND Nurse Practitioner Acute Care
DX: I25.10 Atherosclerotic heart disease of native coronary artery without angina pectoris (principal); I50.41 Acute combined systolic (congestive) and diastolic (congestive) heart failure; I27.20 Pulmonary hypertension, unspecified; I42.0 Dilated cardiomyopathy; I11.0 Hypertensive heart disease with heart failure; E11.9 Type 2 diabetes mellitus without complications; Z98.61 Coronary angioplasty status; Z79.84 Long term (current) use of oral hypoglycemic drugs; Z79.02 Long term (current) use of antithrombotics/antiplatelets; Z79.82 Long term (current) use of aspirin; Z79.899 Other long term (current) drug therapy; F17.200 Nicotine dependence, unspecified, uncomplicated; Z82.49 Family history of ischemic heart disease and other diseases of the circulatory system; Z83.3 Family history of diabetes mellitus; E66.9 Obesity, unspecified; Z68.30 Body mass index [BMI] 30.0-30.9, adult
CPT/HCPCS: 36415; 71045-TC; 80048-TC; 80061-TC; 80076-TC; 83735-TC; 84100-TC; 84443-TC; 84484-TC; 85025-TC; 85730-TC; 93307-TC; G0378; J1650; J1815; J2270; J3490

== ENCOUNTER 2024-05-04 18:28 | Emergency (ER) | payer MEDICAID ==
[~2024-05-04] VITALS: Ht 177.8 cm; Wt 97.5 kg
[~2024-05-04 18:28] MED LIST changes: +ACET-73 PO; +BUME2TAB7 PO; -CARV3.122 PO; +CARV6.252 PO; -DAPA10TA PO; +EMPA10TA PO; -EMPA25TA PO; -FURO40TA5 PO; -HYDR-3972 PO; -LISI-768 PO; -LOSA25TA27 PO; +METF-440 PO; +NITR0.4T48 SL; -PANT40TA2 PO; -POTA20TA83 PO; +SACU1TAB PO
[2024-05-04] MEDS ORDERED: KETOROLAC TROMETHAMINE 15 MG/ML VIAL ONE (19:09)
[2024-05-04] MEDS: KETOROLAC TROMETHAMINE 15 MG/ML VIAL IM ONE (19:17)
[2024-05-04] MEDS ORDERED: HYDR-4209 PO (21:03)
[2024-05-04] MEDS ORDERED: ACET-2605 PO (21:03)
[2024-05-05 03:27] VITALS: BP 123/77; TEMP 98.2; O2SAT 98
== END 2024-05-04 21:35 | disposition home or self-care (01) ==
LOC: ER 18:35
DX: S52.124A Nondisplaced fracture of head of right radius, initial encounter for closed fracture (principal); I11.0 Hypertensive heart disease with heart failure; I50.9 Heart failure, unspecified; E11.9 Type 2 diabetes mellitus without complications; F17.200 Nicotine dependence, unspecified, uncomplicated; X58.XXXA Exposure to other specified factors, initial encounter; Y93.89 Activity, other specified; Y92.89 Other specified places as the place of occurrence of the external cause; Y99.8 Other external cause status
CPT/HCPCS: 99283; 96372; 73080; J1885

== ENCOUNTER 2025-02-27 20:43 | Emergency (ER) | payer MEDICAID ==
[~2025-02-27] VITALS: Ht 177.8 cm; Wt 94.3 kg
[~2025-02-27 20:43] MED LIST changes: +ACET-2605 PO; +HYDR-4209 PO
[2025-02-27] MEDS ORDERED: FUROSEMIDE 40 MG/4 ML VIAL ONE (21:45)
[2025-02-27 21:51] LABS: BASOPHILS # (AUTO) 0.1 K/uL (0.0-0.2); BASOPHILS % (AUTO) 1.5 % (0.0-2.0); EOSINOPHILS # (AUTO) 0.1 K/uL (0.0-0.7); EOSINOPHILS % (AUTO) 0.8 % (0.0-6.0); HEMATOCRIT 48 % (39-51); HEMOGLOBIN 16.2 g/dL (13.5-17.5); LYMPHOCYTES # (AUTO) 2.4 K/uL (0.8-4.8); LYMPHOCYTES % (AUTO) 25.7 % (20.0-44.0); MEAN CORPUSCULAR HEMOGLOBIN 29 PG (26.0-33.0); MEAN CORPUSCULAR HGB CONC 33 g/dl (31.0-36.0); MEAN CORPUSCULAR VOLUME 87 fL (80-96); MONOCYTES # (AUTO) 0.5 K/uL (0.1-1.30); NEUTROPHILS # (AUTO) 6.3 K/uL (1.8-8.9); PLATELET COUNT (AUTO) 198 K/uL (150-450); RED BLOOD CELL COUNT(AUTO) 5.55 MIL/uL (4.5-6.0); RED CELL DISTRIBUTION WIDTH 15.7 % (11.5-15.0); WHITE BLOOD COUNT (AUTO) 9.4 K/uL (4.3-11.0)
[2025-02-27] MEDS: FUROSEMIDE 40 MG/4 ML VIAL IV ONE (21:57)
[2025-02-27 22:00] LABS: CALCIUM, SERUM 9.9 mg/dL (8.5-10.1); CREATININE 1.2 mg/dL (0.6-1.3)
[2025-02-27 22:04] LABS: INR 1.03 (0.91-1.10); PARTIAL THROMBOPLASTIN TIME 26.5 SEC (24.3-34.3); PROTHROMBIN TIME 10.9 SECS (9.2-11.1)
[2025-02-27 22:12] LABS: ALBUMIN 3.4 g/dL (3.4-5.0); BILIRUBIN,DIRECT 0.2 mg/dL (0.0-0.2); BILIRUBIN,TOTAL 0.7 mg/dL (0.2-1.0); TOTAL PROTEIN, SERUM 6.9 g/dL (6.4-8.2)
[2025-02-27] MEDS ORDERED: BUME2TAB7 PO (23:17)
[2025-02-27 23:26] VITALS: BP 113/77; TEMP 97.6; O2SAT 97
== END 2025-02-27 23:26 | disposition home or self-care (01) ==
LOC: ER 20:46
DX: I11.0 Hypertensive heart disease with heart failure (principal); I50.9 Heart failure, unspecified; Z76.0 Encounter for issue of repeat prescription; E11.9 Type 2 diabetes mellitus without complications; F17.200 Nicotine dependence, unspecified, uncomplicated; Z79.02 Long term (current) use of antithrombotics/antiplatelets; Z79.82 Long term (current) use of aspirin; Z79.84 Long term (current) use of oral hypoglycemic drugs; Z79.899 Other long term (current) drug therapy
CPT/HCPCS: 99285; 96374; 71045; 93005; 85025; 80048; 80076; 36415; 85730; 83880; J1940

== ENCOUNTER 2025-03-23 18:57 | Inpatient (IN) | payer MEDICAID ==
[~2025-03-23] VITALS: Ht 177.8 cm; Wt 95.7 kg
[2025-03-23] MEDS ORDERED: MORPHINE SULFATE INJ 4 MG/ML DISP.SYRIN ONE ×2 (19:28→21:22)
[2025-03-23] MEDS: MORPHINE SULFATE INJ 2 MG/ML DISP.SYRIN IV ONE ×2 (19:34→21:23)
[2025-03-23 20:03] LABS: BASOPHILS % (AUTO) 0.4 % (0.0-2.0); EOSINOPHILS # (AUTO) 0.1 K/uL (0.0-0.7); EOSINOPHILS % (AUTO) 0.6 % (0.0-6.0); HEMATOCRIT 47 % (39-51); HEMOGLOBIN 15.8 g/dL (13.5-17.5); LYMPHOCYTES # (AUTO) 2.7 K/uL (0.8-4.8); MEAN CORPUSCULAR HEMOGLOBIN 30 PG (26.0-33.0); MEAN CORPUSCULAR HGB CONC 34 g/dl (31.0-36.0); MEAN CORPUSCULAR VOLUME 88 fL (80-96); MONOCYTES # (AUTO) 0.8 K/uL (0.1-1.30); MONOCYTES % (AUTO) 6.6 % (2.0-12.0); NEUTROPHILS % (AUTO) 69.4 % (43.0-81.0); PLATELET COUNT (AUTO) 208 K/uL (150-450); RED BLOOD CELL COUNT(AUTO) 5.32 MIL/uL (4.5-6.0); RED CELL DISTRIBUTION WIDTH 15.5 % (11.5-15.0); WHITE BLOOD COUNT (AUTO) 11.6 K/uL (4.3-11.0)
[2025-03-23 20:21] LABS: CALCIUM, SERUM 9.4 mg/dL (8.5-10.1); CREATININE 1.5 mg/dL (0.6-1.3); POTASSIUM 3.3 mmol/L (3.5-5.1)
[2025-03-23 20:34] LABS: ALBUMIN 3.7 g/dL (3.4-5.0); BILIRUBIN,DIRECT 0.2 mg/dL (0.0-0.2); BILIRUBIN,TOTAL 0.8 mg/dL (0.2-1.0); TOTAL PROTEIN, SERUM 7.1 g/dL (6.4-8.2)
[2025-03-24] MEDS ORDERED: Z GUARD REMEDY 4 OZ OINT TP PRN
[2025-03-24] MEDS ORDERED: ACETAMINOPHEN ES 500 MG TABLET PO PRN
[2025-03-24] MEDS ORDERED: MAG HYDROX/AL HYDROX/SIMETH 30 ML UDC PO PRN
[2025-03-24] MEDS ORDERED: DEXTROSE 50%-WATER 50 ML DISP.SYRIN IV PRN
[2025-03-24] MEDS ORDERED: ONDANSETRON HCL/PF 4 MG/2 ML VIAL IVP PRN
[2025-03-24] MEDS ORDERED: MAGNESIUM HYDROXIDE 30 ML UDC PO PRN
[2025-03-24] MEDS: MORPHINE SULFATE INJ 2 MG/ML DISP.SYRIN IV ONE (00:26)
[2025-03-24 01:09] VITALS: BP 109/95; TEMP 98; O2SAT 96
[2025-03-24] MEDS: GABAPENTIN 100 MG CAPSULE PO SCH (01:29)
[2025-03-24] MEDS: BUMETANIDE INJ 0.25 MG/ML VIAL IV ONE (01:29)
[2025-03-24] MEDS: ZOLPIDEM TARTRATE 5 MG TABLET PO PRN (01:30)
[2025-03-24] MEDS: ACETAMINOPHEN 325 MG TABLET PO PRN (02:51)
[2025-03-24 04:00] VITALS: BP 112/80; TEMP 98.1; O2SAT 95
[2025-03-24] MEDS: HYDROCODONE/APAP 5/325MG TABLET PO PRN (05:15)
[2025-03-24] MEDS: BLOOD SUGAR DIAGNOSTIC 1 EACH STRIP VI SCH (07:01)
[2025-03-24 08:00] VITALS: BP 120/91; TEMP 98.2; O2SAT 100
[2025-03-24 08:46] LABS: BASOPHILS # (AUTO) 0.1 K/uL (0.0-0.2); BASOPHILS % (AUTO) 1.2 % (0.0-2.0); EOSINOPHILS # (AUTO) 0.1 K/uL (0.0-0.7); EOSINOPHILS % (AUTO) 0.6 % (0.0-6.0); HEMATOCRIT 49 % (39-51); HEMOGLOBIN 16.1 g/dL (13.5-17.5); LYMPHOCYTES # (AUTO) 3.1 K/uL (0.8-4.8); LYMPHOCYTES % (AUTO) 27.1 % (20.0-44.0); MEAN CORPUSCULAR HEMOGLOBIN 29 PG (26.0-33.0); MEAN CORPUSCULAR HGB CONC 33 g/dl (31.0-36.0); MEAN CORPUSCULAR VOLUME 88 fL (80-96); MONOCYTES # (AUTO) 0.6 K/uL (0.1-1.30); MONOCYTES % (AUTO) 5.4 % (2.0-12.0); NEUTROPHILS # (AUTO) 7.6 K/uL (1.8-8.9); NEUTROPHILS % (AUTO) 65.7 % (43.0-81.0); PLATELET COUNT (AUTO) 226 K/uL (150-450); RED CELL DISTRIBUTION WIDTH 15.3 % (11.5-15.0); WHITE BLOOD COUNT (AUTO) 11.6 K/uL (4.3-11.0)
[2025-03-24] MEDS ORDERED: ATORVASTATIN 40 MG TABLET PO SCH (09:00)
[2025-03-24] MEDS: SPIRONOLACTONE 25 MG TABLET PO SCH (09:01)
[2025-03-24] MEDS: CLOPIDOGREL BISULFATE 75 MG TABLET PO SCH (09:01)
[2025-03-24] MEDS: ASPIRIN 81 MG TAB.CHEW PO SCH (09:01)
[2025-03-24] MEDS: CARVEDILOL 6.25 MG TABLET PO SCH (09:01)
[2025-03-24] MEDS: SACUBITRIL/VALSARTAN 24/26MG TABLET PO SCH (09:02)
[2025-03-24] MEDS: EZETIMIBE 10 MG TABLET PO SCH (09:02)
[2025-03-24] MEDS: EMPAGLIFLOZIN 10 MG TABLET PO SCH (09:02)
[2025-03-24 09:06] LABS: CALCIUM, SERUM 9.2 mg/dL (8.5-10.1); CREATININE 1.3 mg/dL (0.6-1.3); MAGNESIUM 2.1 mg/dL (1.8-2.4); PHOSPHORUS 3.9 mg/dL (2.5-4.9)
[2025-03-24] MEDS: POTASSIUM CHLORIDE 20 MEQ TAB.PRT.SR PO SCH (09:49)
[2025-03-24] MEDS: FUROSEMIDE 100 MG/10 ML VIAL IV SCH (09:49)
[2025-03-24 09:51] LABS: THYROID STIMULATING HORMONE 1.79 uIU/mL (0.358-3.74)
[2025-03-24 12:00] VITALS: BP 102/80; TEMP 97.9; O2SAT 95
[2025-03-24] MEDS: INSULIN REGULAR, HUMAN 100 UNIT/ML 3 ML VIAL SQ PRN (12:03)
[2025-03-24 16:00] VITALS: BP 100/74; TEMP 98.1; O2SAT 95
[2025-03-24 20:00] VITALS: BP 95/70; TEMP 98.1; O2SAT 96
[2025-03-24] MEDS: *INSULIN REGULAR(HUMULIN R)HUM 100 UNIT/ML VIAL SQ PRN (21:49)
[2025-03-25] VITALS: BP 116/80; TEMP 99.1; O2SAT 96
[2025-03-25] MEDS: MORPHINE SULFATE INJ 2 MG/ML DISP.SYRIN IV ONE ×2 (02:35→07:05)
[2025-03-25 04:00] VITALS: BP 101/65; TEMP 99; O2SAT 96
[2025-03-25 08:00] VITALS: BP 94/61; TEMP 98; O2SAT 96
[2025-03-25 08:32] LABS: BASOPHILS # (AUTO) 0.1 K/uL (0.0-0.2); BASOPHILS % (AUTO) 0.5 % (0.0-2.0); EOSINOPHILS # (AUTO) 0.1 K/uL (0.0-0.7); EOSINOPHILS % (AUTO) 0.9 % (0.0-6.0); HEMATOCRIT 45 % (39-51); HEMOGLOBIN 15.4 g/dL (13.5-17.5); LYMPHOCYTES # (AUTO) 2.3 K/uL (0.8-4.8); LYMPHOCYTES % (AUTO) 22.5 % (20.0-44.0); MEAN CORPUSCULAR HEMOGLOBIN 30 PG (26.0-33.0); MEAN CORPUSCULAR HGB CONC 34 g/dl (31.0-36.0); MEAN CORPUSCULAR VOLUME 89 fL (80-96); MONOCYTES # (AUTO) 0.8 K/uL (0.1-1.30); MONOCYTES % (AUTO) 7.6 % (2.0-12.0); NEUTROPHILS % (AUTO) 68.5 % (43.0-81.0); PLATELET COUNT (AUTO) 191 K/uL (150-450); RED BLOOD CELL COUNT(AUTO) 5.12 MIL/uL (4.5-6.0); RED CELL DISTRIBUTION WIDTH 15.4 % (11.5-15.0); WHITE BLOOD COUNT (AUTO) 10.2 K/uL (4.3-11.0)
[2025-03-25 10:24] LABS: ALBUMIN 3.1 g/dL (3.4-5.0); BILIRUBIN,TOTAL 0.9 mg/dL (0.2-1.0); CALCIUM, SERUM 8.8 mg/dL (8.5-10.1); CREATININE 1.5 mg/dL (0.6-1.3); MAGNESIUM 1.9 mg/dL (1.8-2.4); PHOSPHORUS 3.2 mg/dL (2.5-4.9); POTASSIUM 3.7 mmol/L (3.5-5.1); TOTAL PROTEIN, SERUM 6.5 g/dL (6.4-8.2)
[2025-03-25 12:00] VITALS: BP 113/81; TEMP 97.7; O2SAT 96
[2025-03-25 16:00] VITALS: BP 124/87; TEMP 98.2; O2SAT 95
[2025-03-25 20:00] VITALS: BP 102/57; TEMP 98.1; O2SAT 97
[2025-03-26] VITALS: BP 94/53; TEMP 98.4; O2SAT 97
[2025-03-26 04:00] VITALS: BP 108/51; TEMP 98.1; O2SAT 95
[2025-03-26 07:40] LABS: BASOPHILS # (AUTO) 0.1 K/uL (0.0-0.2); BASOPHILS % (AUTO) 1.1 % (0.0-2.0); EOSINOPHILS # (AUTO) 0.1 K/uL (0.0-0.7); EOSINOPHILS % (AUTO) 0.7 % (0.0-6.0); HEMATOCRIT 44 % (39-51); HEMOGLOBIN 14.4 g/dL (13.5-17.5); LYMPHOCYTES # (AUTO) 2.3 K/uL (0.8-4.8); LYMPHOCYTES % (AUTO) 21.6 % (20.0-44.0); MEAN CORPUSCULAR HEMOGLOBIN 29 PG (26.0-33.0); MEAN CORPUSCULAR HGB CONC 33 g/dl (31.0-36.0); MEAN CORPUSCULAR VOLUME 89 fL (80-96); MONOCYTES # (AUTO) 0.8 K/uL (0.1-1.30); MONOCYTES % (AUTO) 7.9 % (2.0-12.0); NEUTROPHILS # (AUTO) 7.3 K/uL (1.8-8.9); NEUTROPHILS % (AUTO) 68.7 % (43.0-81.0); PLATELET COUNT (AUTO) 200 K/uL (150-450); RED BLOOD CELL COUNT(AUTO) 4.94 MIL/uL (4.5-6.0); RED CELL DISTRIBUTION WIDTH 15.2 % (11.5-15.0); WHITE BLOOD COUNT (AUTO) 10.6 K/uL (4.3-11.0)
[2025-03-26 08:00] VITALS: BP 110/69; TEMP 97.7; O2SAT 100
[2025-03-26 08:00] LABS: ALBUMIN 2.7 g/dL (3.4-5.0); BILIRUBIN,TOTAL 0.8 mg/dL (0.2-1.0); MAGNESIUM 2.1 mg/dL (1.8-2.4); PHOSPHORUS 3.3 mg/dL (2.5-4.9); TOTAL PROTEIN, SERUM 6.3 g/dL (6.4-8.2)
[2025-03-26 11:12] LABS: PTH, INTACT 97 pg/mL (15-65)
[2025-03-26] MEDS: GABAPENTIN 300 MG CAPSULE PO SCH (12:19)
[2025-03-26 16:00] VITALS: BP 102/64; TEMP 97.9; O2SAT 99
[2025-03-26] MEDS: HYDROCODONE/APAP 10/325MG TABLET PO PRN ×2 (17:05→21:09)
[2025-03-27] VITALS: BP 96/67; TEMP 97.9; O2SAT 95
[2025-03-27] MEDS: MORPHINE SULFATE INJ 4 MG/ML DISP.SYRIN IV PRN (07:47)
[2025-03-27 08:00] VITALS: BP 104/74; TEMP 98.1; O2SAT 97
[2025-03-27] MEDS ORDERED: GABAPENTIN 300 MG CAPSULE PO SCH (09:00)
[2025-03-27] MEDS ORDERED: HYDR-3976 PO (10:59)
[2025-03-27 12:00] VITALS: BP 96/72; TEMP 98.8; O2SAT 99
[2025-03-27] MEDS ORDERED: DICLOFENAC TOPICAL 100 GM TUBE TP PRN (12:00)
[2025-03-27] MEDS: NICOTINE PATCH (21MG) 21 MG PATCH.TD24 TD SCH (14:56)
[2025-03-27] MEDS ORDERED: oxyCODONE IR immediate release 5 MG TABLET PO PRN (15:30)
[2025-03-27 16:00] VITALS: BP 97/67; TEMP 98.8; O2SAT 98
[2025-03-27 20:00] VITALS: BP 97/74; TEMP 98.4; O2SAT 98
[2025-03-28] MEDS: diphenhydrAMINE HCL 25 MG CAPSULE PO ONE (00:12)
[2025-03-28] MEDS: oxyCODONE IR immediate release 5 MG TABLET PO PRN (00:43)
[2025-03-28 08:00] VITALS: BP 98/64; TEMP 98.1; O2SAT 97
[2025-03-28] MEDS: COLCHICINE 0.6 MG TABLET PO SCH (17:00)
[2025-03-28 20:00] VITALS: BP 131/67; TEMP 98.1; O2SAT 95
[2025-03-28] MEDS: IBUPROFEN 600 MG TABLET PO PRN (23:01)
[2025-03-29 07:00] VITALS: BP 100/60; TEMP 97.3; O2SAT 98
[2025-03-29 08:11] LABS: BASOPHILS % (AUTO) 0.6 % (0.0-2.0); EOSINOPHILS % (AUTO) 0.7 % (0.0-6.0); HEMATOCRIT 41 % (39-51); HEMOGLOBIN 13.3 g/dL (13.5-17.5); LYMPHOCYTES # (AUTO) 1.7 K/uL (0.8-4.8); LYMPHOCYTES % (AUTO) 27.5 % (20.0-44.0); MEAN CORPUSCULAR HEMOGLOBIN 29 PG (26.0-33.0); MEAN CORPUSCULAR HGB CONC 32 g/dl (31.0-36.0); MEAN CORPUSCULAR VOLUME 89 fL (80-96); MONOCYTES # (AUTO) 0.7 K/uL (0.1-1.30); MONOCYTES % (AUTO) 11.2 % (2.0-12.0); NEUTROPHILS # (AUTO) 3.8 K/uL (1.8-8.9); PLATELET COUNT (AUTO) 208 K/uL (150-450); RED CELL DISTRIBUTION WIDTH 14.9 % (11.5-15.0); WHITE BLOOD COUNT (AUTO) 6.3 K/uL (4.3-11.0)
[2025-03-29 08:16] LABS: ALBUMIN 2.4 g/dL (3.4-5.0); BILIRUBIN,TOTAL 0.7 mg/dL (0.2-1.0); CALCIUM, SERUM 8.9 mg/dL (8.5-10.1); CREATININE 1.1 mg/dL (0.6-1.3); MAGNESIUM 2.6 mg/dL (1.8-2.4); POTASSIUM 4.3 mmol/L (3.5-5.1)
[2025-03-29] MEDS ORDERED: COLC0.6T67 PO (12:09)
[2025-03-29] MEDS ORDERED: ALLO300T2 PO (12:09)
[2025-03-29] MEDS ORDERED: Colchicine PO (12:09)
[2025-03-29 16:00] VITALS: BP 111/68; TEMP 97.3; O2SAT 98
[2025-03-29 16:38] VITALS: BP 111/68
== END 2025-03-29 18:00 | disposition home or self-care (01) | DRG 351 ==
LOC: ER 19:02 → TELE1 03-24 00:38 → MEDSG1 03-26 10:06 → MED 03-27 10:03
PROVIDERS: ADMIT Nurse Practitioner Acute Care; ATTEND Internal Medicine
DX: M10.9 Gout, unspecified (principal); J96.01 Acute respiratory failure with hypoxia; N17.0 Acute kidney failure with tubular necrosis; I50.23 Acute on chronic systolic (congestive) heart failure; I12.9 Hypertensive chronic kidney disease with stage 1 through stage 4 chronic kidney disease, or unspecified chronic kidney disease; E78.5 Hyperlipidemia, unspecified; Z95.810 Presence of automatic (implantable) cardiac defibrillator; I45.6 Pre-excitation syndrome; I25.10 Atherosclerotic heart disease of native coronary artery without angina pectoris; Z95.5 Presence of coronary angioplasty implant and graft; Z79.84 Long term (current) use of oral hypoglycemic drugs; Z79.02 Long term (current) use of antithrombotics/antiplatelets; Z79.82 Long term (current) use of aspirin; Z79.899 Other long term (current) drug therapy; M89.8X9 Other specified disorders of bone, unspecified site; I42.9 Cardiomyopathy, unspecified; E87.6 Hypokalemia; I27.20 Pulmonary hypertension, unspecified; F17.210 Nicotine dependence, cigarettes, uncomplicated; E66.9 Obesity, unspecified; Z68.30 Body mass index [BMI] 30.0-30.9, adult; Z71.6 Tobacco abuse counseling; Z82.49 Family history of ischemic heart disease and other diseases of the circulatory system; Z83.3 Family history of diabetes mellitus; N18.9 Chronic kidney disease, unspecified; E11.22 Type 2 diabetes mellitus with diabetic chronic kidney disease
CPT/HCPCS: 36415; 71045-TC; 73560-TC; 80048-TC; 80053-TC; 80061-TC; 80076-TC; 82550-TC; 82962-TC; 83735-TC; 83880; 83970; 84100-TC; 84155; 84165; 84439-TC; 84443-TC; 84484-TC; 84550-TC; 85025-TC; 93970-TC; 97110-TC; 97112-TC; 97116-TC; 97530-TC; G0378; J1815; J1938; J2270; J3490; Q0163